=== PATIENT | male | born 1975 | race Hispanic/Latino ===

== ENCOUNTER 2017-02-08 16:59 | Emergency (ER) | payer OTHER ==
--- NOTE | 2017-02-08 19:38 | RAD ---
TWO VIEW OF THE CHEST: 02/08/17 INDICATION: Flu-like symptoms since [place] with fever, cough and nasal congestion. IMPRESSION: No acute cardiopulmonary abnormality. The examination is not appreciably changed from the previously dated 07/09/16. POS: [facility]
== END 2017-02-08 17:55 | disposition home or self-care (01) ==
LOC: SCSER 16:59
DX: R05 Cough (principal); F43.10 Post-traumatic stress disorder, unspecified; E11.9 Type 2 diabetes mellitus without complications; Z79.4 Long term (current) use of insulin; Z79.899 Other long term (current) drug therapy
CPT/HCPCS: 71020

== ENCOUNTER 2017-08-22 23:56 | Emergency (ER) | payer OTHER ==
[2017-08-23] MEDS ORDERED: Adacel (T-DAP) 0.5 ML VIAL ONE (00:17)
[2017-08-23] MEDS ORDERED: CEFAZOLIN 1 GM VIAL ONE (00:17)
== END 2017-08-23 02:51 | disposition short-term general hospital (02) ==
LOC: ERS 23:56
DX: T22.71 Corrosion of third degree of forearm (principal); T21.61XA Corrosion of second degree of chest wall, initial encounter; T32.0 Corrosions involving less than 10% of body surface; T65.891A Toxic effect of other specified substances, accidental (unintentional), initial encounter; E11.9 Type 2 diabetes mellitus without complications; E78.00 Pure hypercholesterolemia, unspecified; Z79.4 Long term (current) use of insulin; Z79.899 Other long term (current) drug therapy; X19.XXXA Contact with other heat and hot substances, initial encounter
CPT/HCPCS: 16020; 90471; 90715; 96361; 96365; 96375; 96376; 99292; G0390; J0690; J2270

== ENCOUNTER 2020-07-21 09:33 | Outpatient (CLI) | payer OTHER | END 2020-07-21 09:34 | disposition home or self-care (01) | LOC: BICRAD 09:33 | PROVIDERS: ATTEND Nurse Practitioner Family | DX: S99.921A Unspecified injury of right foot, initial encounter (principal) ==

== ENCOUNTER 2020-08-22 07:23 | Outpatient (CLI) | payer OTHER | END 2020-08-22 07:24 | disposition home or self-care (01) | LOC: BICMRI 07:23 | PROVIDERS: ATTEND Nurse Practitioner Family | DX: S99.921D Unspecified injury of right foot, subsequent encounter (principal); S96.911A Strain of unspecified muscle and tendon at ankle and foot level, right foot, initial encounter ==